=== PATIENT | male | born 1955 | race Asian ===

== ENCOUNTER 2016-11-05 06:25 | Emergency (ER) | payer OTHER ==
[~2016-11-05] VITALS: Ht 182.9 cm; Wt 99.8 kg
[~2016-11-05 06:25] MED LIST: ACID REDUCER150 MG PO; ACTOS15 MG PO; AMANTADINE100 MG PO; AMMONIUM LAC12 % EX; ATIVAN2 M1 PO; BENZTROPINE0.5 MG PO; CLON0.1T16 PO; DIVA500T2 PO; DIVALPROEX250 MG PO; DOCU100C10 PO; DULCOLAX10 MG RE; FINA5TAB2 PO; FLEET ENEMA RE; FORTAMET500 MG PO; GLIM4TAB PO; HALO10TA5 PO; HALO50IN4 IM; HALO5INJ3 IM; HALO5TAB10 PO; INSU100P SC; INSUINJP SC; LEXAPRO20 MG PO; LORA2INJ21 IM; MAGNSUS68 PO; MEDR10TA4 PO; METO50TA27 PO; MUPI2OIN2 TOP; OLAN2.5T2 PO; PROTONIX20 MG PO; RISP1TAB PO; RISPERDAL3 MG PO; TOUJEO SC; TRESIBA FL100 UNIT/M SC; TRIHEXYPHEN2 MG PO; TRIPLE ANTIBIOT EX; TYLENOL325 MG PO; ZIPR20IN IM; ZIPR80CA PO; [UNRECOGNIZED DRUG - CODE]
[2016-11-05 06:31] VITALS: TEMP 98
[2016-11-05 07:41] VITALS: BP 176/112
== END 2016-11-05 07:44 | disposition other institution (70) ==
LOC: ED 06:25
DX: R07.89 Other chest pain (principal); R94.31 Abnormal electrocardiogram [ECG] [EKG]; K21.9 Gastro-esophageal reflux disease without esophagitis
CPT/HCPCS: 82550; 84484; 93005; 99283

== ENCOUNTER 2017-08-30 22:03 | Emergency (ER) | payer OTHER ==
[~2017-08-30] VITALS: Ht 177.8 cm; Wt 93.6 kg
[~2017-08-30 22:03] MED LIST changes: +BENZ1TAB43 PO; +BISACODYL LAXAT10 MG RE; +COZAAR100 MG PO; +JARDIANCE25 MG PO; +LAC-HYDRIN121 EX; +LEVEMIR SC; +LEVO0.0218 PO; +METOPROLOL TART75 MG PO; +MUPIROCIN21 EX; +PIOG30TA PO; +PSYL0.52C PO; +VITAMIN D31000 UNI1 PO
[2017-08-30 22:09] VITALS: TEMP 98.6
[2017-08-30 23:26] LABS: PLATELET COUNT 127 K/uL (142-355)
[2017-08-30 23:34] LABS: POTASSIUM 3.4 mmol/L (3.6-5.2)
[2017-08-30 23:56] VITALS: BP 132/90
[2017-08-31] MEDS ORDERED: PANTOPRAZOLE 40MG TA PO (01:08)
[2017-08-31] MEDS ORDERED: ZIPR20CA PO (01:09)
[2017-08-31] MEDS ORDERED: AMLODIPINE BESYLATE PO (01:15)
[2017-08-31] MEDS ORDERED: PHENERGAN 25MG/25 MG IM (01:20)
[2017-08-31] MEDS ORDERED: JARDIANCE25 MG PO (01:26)
== END 2017-08-30 23:56 | disposition other institution (70) ==
LOC: ED 22:03 → EDP 22:03 → ED 22:03
DX: Z00.8 Encounter for other general examination (principal); R46.89 Other symptoms and signs involving appearance and behavior; I10 Essential (primary) hypertension
CPT/HCPCS: 36415; 80053; 81000; 85027; 93005; 99285

== ENCOUNTER 2017-09-26 15:49 | Emergency (ER) | payer OTHER ==
[~2017-09-26] VITALS: Ht 182.9 cm; Wt 99.8 kg
[~2017-09-26 15:49] MED LIST changes: +AMLODIPINE BESYLATE PO; +MAGN400T4 PO; +PANTOPRAZOLE 40MG TA PO; +PHENERGAN 25MG/25 MG IM; +ZIPR20CA PO
[2017-09-26 16:51] LABS: PLATELET COUNT 121 K/uL (142-355)
[2017-09-26 16:55] LABS: POTASSIUM 4.2 mmol/L (3.6-5.2)
[2017-09-26 17:53] VITALS: BP 131/89; TEMP 97.8
[2017-09-26] MEDS ORDERED: INSUINJ20 SC (20:32)
[2017-10-08] MEDS ORDERED: PANTOPRAZOLE 40MG TA PO (23:02)
[2017-10-08] MEDS ORDERED: INSU300I SC (23:02)
[2017-10-08] MEDS ORDERED: DIPH50IN IM (23:02)
[2017-10-08] MEDS ORDERED: AMLODIPINE BESYLATE PO (23:02)
[2017-10-08] MEDS ORDERED: HALO50IN4 IM (23:02)
[2017-10-08] MEDS ORDERED: METO-837 PO (23:02)
[2017-10-08] MEDS ORDERED: FINA5TAB2 PO (23:02)
[2017-10-08] MEDS ORDERED: GLIM2TAB PO (23:02)
[2017-10-08] MEDS ORDERED: MEDR2.5T19 PO (23:02)
[2017-10-08] MEDS ORDERED: PROM25IN5 IM (23:02)
[2017-10-08] MEDS ORDERED: ZIPR80CA PO (23:02)
[2017-10-08] MEDS ORDERED: ARIPIPRAZOLE10 MG PO (23:02)
[2017-10-08] MEDS ORDERED: LORA2INJ21 IM (23:02)
[2017-10-08] MEDS ORDERED: [UNRECOGNIZED DRUG - OTHER] PO (23:02)
[2017-10-08] MEDS ORDERED: LOSA50TA PO (23:02)
[2017-10-08] MEDS ORDERED: INSUINJ20 SC (23:02)
[2017-10-08] MEDS ORDERED: BISA10SU8 RE (23:02)
[2017-10-08] MEDS ORDERED: MAGN400T4 PO (23:02)
[2017-10-08] MEDS ORDERED: SITA50TA2 PO (23:02)
[2017-10-08] MEDS ORDERED: ESCI10TA PO (23:02)
[2017-10-08] MEDS ORDERED: ASPIRIN325 M1 PO (23:02)
[2017-10-08] MEDS ORDERED: RANI150T78 PO (23:02)
[2017-10-08] MEDS ORDERED: TRAZ50TA36 PO (23:02)
[2017-10-08] MEDS ORDERED: DOCU100C10 PO (23:02)
[2017-10-08] MEDS ORDERED: PIOG30TA PO (23:02)
[2017-10-08] MEDS ORDERED: BENZ1TAB43 PO (23:02)
[2017-10-08] MEDS ORDERED: LEVO0.0529 PO (23:02)
[2017-10-08] MEDS ORDERED: DIVA500T2 PO (23:02)
[2017-10-08] MEDS ORDERED: HALO5INJ3 IM (23:02)
[2017-10-08] MEDS ORDERED: OXCARBAZEPIN300 MG PO (23:02)
[2017-10-11] MEDS ORDERED: TRAZ50TA36 PO (10:35)
[2017-10-11] MEDS ORDERED: OXCARBAZEPIN300 MG PO ×2 (10:35)
== END 2017-09-26 17:53 | disposition other institution (70) ==
LOC: ED 15:49
PROVIDERS: Family Medicine
DX: F20.89 Other schizophrenia (principal); F60.3 Borderline personality disorder; Z04.6 Encounter for general psychiatric examination, requested by authority
CPT/HCPCS: 36415; 80053; 81000; 85027; 93005; 99285